=== PATIENT | male | born 1965 | race Caucasian/White ===

== ENCOUNTER → 2019-09-10 | Outpatient (CLI) | payer BC ==
[~2019-09-10] MED LIST: CA C1TAB78 PO; FLAX100011 PO; HYDR-4226 PO; Levofloxacin PO; MELA1TAB11 PO; MULT-974 PO; NAPR-1071 PO; OMEG1CAP51 PO; VITA1CAP21 PO; [UNRECOGNIZED DRUG - OTHER] PO
--- NOTE | 2019-09-10 12:43 | Diagnostic Imaging Report ---
INDICATION: Pain. FINDINGS: There is a moderate severity of osteoarthritic changes to the left hip joint. In this single AP oriented radiograph, no fracture is appreciable. There is some bony hypertrophy at the femoral head-neck junction which could result in impingement in the appropriate scenario. IMPRESSION: Degenerative changes and bony hypertrophy raising the question of impingement. No acute finding revealed at single AP radiograph of the left hip. Dictated by: Dictated on workstation # [id number]
== END ==
LOC: RAD 09:58
PROVIDERS: ATTEND Family Medicine
DX: M16.12 Unilateral primary osteoarthritis, left hip (principal); M89.352 Hypertrophy of bone, left femur
CPT/HCPCS: 73501

== ENCOUNTER → 2020-01-01 | Outpatient (REF) ==
--- NOTE | 2020-01-01 12:22 | Diagnostic Imaging Report ---
EXAMINATION: Left hip at 11:19 a.m. INDICATION: Hip pain. AP and lateral views were obtained. FINDINGS: The prior exam of 09/10/2019 noted moderately severe osteoarthritic changes involving the left hip joint. Those findings are again evident and do not appear to have progressed. There is no fracture or acute bony abnormality evident. There is no sign of avascular necrosis. The soft tissues are unremarkable. IMPRESSION: 1. The degenerative changes involving the hip joint noted on the prior exam appear stable. No new abnormality has developed. 2. If clinical concern regarding an underlying abnormality persists, then MRI would be recommended for further evaluation. Dictated by: Dictated on workstation # [id number]
== END | disposition home or self-care (01) ==
LOC: OCC 11:00
PROVIDERS: ATTEND Nurse Practitioner Family
CPT/HCPCS: 73502

== ENCOUNTER → 2020-03-24 | Outpatient (REF) | payer BC ==
--- NOTE | 2020-03-24 13:47 | Diagnostic Imaging Report ---
EXAMINATION: Magnetic resonance imaging of the pelvis and left hip without contrast DATE: March 24, 2020. COMPARISON: Left hip radiograph January 01, 2020. INDICATION: 54-year-old male, left hip pain. TECHNIQUE: Magnetic Resonance Imaging sequences were performed of the pelvis and left hip without contrast. TENDONS AND MUSCLES: The gluteus ki muscles and their origins and insertions are intact bilaterally. The tendons and muscles of the greater trochanter - gluteus minimus, piriformis and gluteus medius - are intact bilaterally. Both common hamstring attachments on the ischial tuberosities are intact and the extensor muscles of the thigh are intact. The visualized portions of the flexors and adductor muscles of the thigh and their attachments on the pelvis and hips are intact. Both iliopsoas and iliacus muscles are intact. The bilateral iliopsoas tendons are intact. HIPS AND SACROILIAC JOINTS: There is severe joint space loss of the left hip with [id number] articulation. There is associated osteophyte formation. There is prominent edema-like signal in the left acetabulum as well as the left femoral head and neck. There is no clearly identified fracture line or pathognomonic double line sign of osteonecrosis. There is abnormal protuberance at the left femoral head neck junction. The right hip joint space appears mildly narrowed. There is no right hip joint effusion. There is no identified paralabral cyst. There is partial ankylosis across the sacroiliac joints, particularly at their upper aspects. LUMBAR SPINE: There is transitional lumbosacral anatomy. If spinal intervention is to be performed in the future, recommend careful correlation with levels. BONE: There is marrow edema in the left acetabulum, left femoral head, and left femoral neck as described above. There is no clearly identified pathognomonic double line sign of osteonecrosis or a visible fracture line. BURSAE AND SOFT TISSUES: There is diffuse urinary bladder wall thickening which may relate to cystitis and/or chronic outlet obstruction. There is fluid in the right inguinal canal which is nonspecific. IMPRESSION: 1. Severe arthritis of the left hip with small left hip joint effusion. Very prominent edema-like signal in the left acetabulum, left femoral head, left femoral neck could relate to the arthritis. There is no identified fracture line or pathognomonic double line sign of osteonecrosis. Particularly given the somewhat prominent edema in the left proximal femur, early findings of avascular necrosis, and a cold subchondral fracture, or transient osteoporosis are also in the differential diagnosis. 2. Abnormal protuberance at the left femoral head neck junction. It is uncertain if this is a primary abnormal osseous morphology or secondary finding relating to the arthritis. 3. Intact muscles and tendons. 4. Partial ankylosis across the sacroiliac joints at the upper aspects. Seronegative spondyloarthropathies are in the differential diagnosis. Dictated by: Dictated on workstation # [id number]
== END ==
LOC: RAD 12:20 → EDSTATUS 12:30
PROVIDERS: ATTEND Nurse Practitioner Family
DX: M16.12 Unilateral primary osteoarthritis, left hip (principal); M25.451 Effusion, right hip; M24.651 Ankylosis, right hip
CPT/HCPCS: 73721

== ENCOUNTER → 2021-05-26 | Outpatient (CLI) | payer BC ==
[~2021-05-26] VITALS: Ht 170.2 cm; Wt 90.8 kg
[~2021-05-26] MED LIST changes: +ZOLP5TAB PO
== END | disposition home or self-care (01) ==
LOC: PREOP 05:31
PROVIDERS: ATTEND Surgery
DX: Z01.818 Encounter for other preprocedural examination (principal)

== ENCOUNTER 2021-06-02 12:12 | Day surgery (SDC) | payer BC ==
--- NOTE | 2021-06-01 14:15 | HISTORY AND PHYSICAL ---
DATE OF SERVICE: PROCEDURE DATE: 06/02/2021. ATTENDING PRIMARY CARE PHYSICIAN: Dr. Valentino Coe. HISTORY OF PRESENT ILLNESS: The patient is a 55-year-old male, who was referred over to us for a screening colonoscopy. He reports her last colonoscopy was some around 5 to 10 years ago. He denies any diarrhea or constipation as well as no blood in the stool. He also denies any abdominal pain. He does report that he does have a family history of colon cancer with his grandfather having colon cancer. PAST MEDICAL HISTORY: Degenerative joint disease, orbital fracture of the left. PAST SURGICAL HISTORY: None. ALLERGIES: No known drug allergies. MEDICATIONS: Ambien, naproxen and Flexeril. SOCIAL HISTORY: Negative for tobacco smoke. Positive for chewing tobacco. Social for alcohol. FAMILY HISTORY: Mother, type 2 diabetes, myocardial infarction. Grandfather, colon cancer. VITAL SIGNS: Blood pressure is 173/98. Current weight is 202 pounds, height 5 feet 7 inches with a body mass index of 31.6. REVIEW OF SYSTEMS: Well-nourished male in no acute distress. He is not experiencing any shortness of breath or difficulty breathing. No chest pain, palpitations or diaphoresis. No nausea, vomiting or abdominal pain. No diarrhea or constipation. No red blood per rectum. No dark tarry stools. No fever or chills. No recent inadvertent weight loss. All other review of systems negative. PHYSICAL EXAMINATION: CHEST: Clear. Good breath sounds bilaterally. HEART: Regular, no murmurs. EXTREMITIES: No lower extremity edema. Negative Homans sign. HEENT: No scleral icterus. NECK: No cervical lymphadenopathy. ABDOMEN: Soft, nontender, nondistended. SKIN: Warm, dry and pink. NEUROLOGIC: He is awake, alert and oriented x3. ASSESSMENT AND PLAN: A 55-year-old male, who does have a family history of colon cancer with his grandfather having the disease. At this time, we will proceed with scheduling him for a screening colonoscopy. Job ID: [id number] DocumentID: [id number] Dictated Date: 06/01/2021 14:00:14 Database Coordinator Date: 06/01/2021 14:14:57 Dictated By: HANNAH MANDUJANO APRN
[~2021-06-02] VITALS: Ht 170.2 cm; Wt 90.8 kg
[2021-06-02] VITALS (11 sets, daily range): BP systolic 127–150; BP diastolic 83–100
--- NOTE | 2021-06-02 12:16 | Conscious Sedation/ASA ---
Conscious Sedation Pre-Proced Time 12:15 ASA Score 2 For ASA 3 and 4: Consider anesthesia and medical clearance. Also, for patients with a history of failed moderate sedation consider anesthesia. Airway Lungs Heart ASA score ASA 1: a normal healthy patient ASA 2: a patient with a mild systemic disease (mid diabetes, controlled hypertension, obesity ASA 3: a patient with a severe systemic disease that limits activity (angina, COPD, prior Myocardial infarction) ASA 4: a patient with an incapacitating disease that is a constant threat to life (CHF, renal failure) ASA 5: a moribund patient not expected to survive 24 hrs. (ruptured aneurysm) ASA 6: a declared brain- patient whose organs are being harvested. For emergent operations, add the letter E after the classification Mallampati Classification Grade 2 Sedation Plan Analgesia, Amnesia, Plan communicated to team members, Discussed options with patient/fam, Discussed risks with patient/fam The patient is an appropriate candidate to undergo the planned procedure, sedation, and anesthesia. The patient immediately re-assessed prior to indication. SRUTHI PRECIADO MD Jun 02, 2021 12:16
--- NOTE | 2021-06-02 12:17 | Progress Note-Pre Operative ---
Pre-Operative Progress Note H&P Reviewed The H&P was reviewed, patient examined and no changes noted. Date Seen by Provider: Jun 02, 2021 Time Seen by Provider: 12:15 Date H&P Reviewed: Jun 02, 2021 Time H&P Reviewed: 12:15 Pre-Operative Diagnosis: screening SRUTHI Patton MD Jun 02, 2021 12:17
--- NOTE | 2021-06-02 12:18 | Discharge Inst-Surgical ---
D/C Lap Instructions-OZZY Follow Up Activity as tolerated High Fiber Diet 25g or more per day Avoid Alcohol, Caffeine, Spicy Catarina and Acid foods. Drink 64 fluid oz or more of fluids per day. Symptoms to Report: Fever over 101 degree F, Nausea/Vomiting If any problems/questions: Contact your physician or go to Emergency Room SRUTHI PRECIADO MD Jun 02, 2021 12:18
[2021-06-02] MEDS ORDERED: ONDANSETRON 4 MG (ZOFRAN) ORAL DISSOLVE TAB PO PRN (12:30)
[2021-06-02] MEDS ORDERED: ONDANSETRON 4 MG/2 ML (SDV) Z0FRAN IVP PRN (12:30)
[2021-06-02] MEDS ORDERED: NS IV 500 ML 500 ML IV PRN (12:45)
[2021-06-02] MEDS ORDERED: LIDOCAINE JELLY 2% 6 ML SYRINGE MM PRN (12:45)
[2021-06-02] MEDS ORDERED: fentaNYL INJ 100 MCG/2 ML AMP IVP ONE (12:45)
[2021-06-02] MEDS ORDERED: MIDAZOLAM 5 MG/5 ML (VERSED) VIAL IV ONE (12:45)
[2021-06-02] MEDS ORDERED: fentaNYL INJ 100 MCG/2 ML AMP ONE (14:51)
[2021-06-02] MEDS ORDERED: MIDAZOLAM 5 MG/5 ML (VERSED) VIAL ONE (14:52)
--- NOTE | 2021-06-02 15:47 | Progress Note-Post Operative ---
Post-Operative Progess Note Surgeon (s)/Industrial Methods Consultant (s) Surgeon SRUTHI PRECIADO MD Industrial Methods Consultant: none Pre-Operative Diagnosis screening colo Post-Operative Diagnosis mild chronic stage 2 ext and int hemorrhoids, moderate sigmoid diverticulosis. Procedure & Operative Findings Date of Procedure 06/02/21 Procedure Performed/Findings colonoscopy Anesthesia Type cs Estimated Blood Loss Estimated blood loss (mL): minimal Specimens/Packing Specimens Removed none SRUTHI PRECIADO MD Jun 02, 2021 15:47
--- NOTE | 2021-06-03 02:18 | OPERATIVE REPORT ---
DATE OF SERVICE: 06/02/2021 ATTENDING PRIMARY CARE PHYSICIAN: Dr. Valentino Coe. PREOPERATIVE DIAGNOSIS: Screening colonoscopy. POSTOPERATIVE DIAGNOSES: Mild chronic stage II external and internal hemorrhoids, moderate sigmoid diverticulosis. PROCEDURE: Colonoscopy. SURGEON: Sruthi Preciado MD. ANESTHESIA: Conscious sedation. ESTIMATED BLOOD LOSS: Minimal. FINDINGS: Mild chronic stage II external and internal hemorrhoids, moderate sigmoid diverticulosis. DISPOSITION: The patient tolerated the procedure well. INDICATIONS: The patient is a 55-year-old male referred over to us for screening colonoscopy. He states that his last colonoscopy was around 5 to 10 years ago. He does not recall any abnormalities. He does not report any major issues with diarrhea nor constipation as well as no red blood per rectum. He does have a remote family history of colon cancer with his grandfather having the disease; however, he does not have any first-degree relatives. DESCRIPTION OF PROCEDURE: The patient was brought to the endoscopy suite, laid in the left lateral decubitus position. After adequate IV pain and sedative medications and conscious sedation anesthesia, a digital rectal examination was performed. Mild chronic stage II external and internal hemorrhoids identified, which were stage II. Normal sphincter tone was felt and there were no palpable masses. Prostate gland was palpable and appeared normal. The endoscope was then intubated to anus and rectum gently insufflated. The endoscope was then advanced through the valves of Wray of the rectum with no polyps or any neoplasms identified. Through the sigmoid colon, a moderate sigmoid diverticulosis identified. There were no mucosal inflammatory changes to indicate any active diverticulitis. The endoscope was then advanced to the remainder of the descending, transverse and ascending colon to the cecum, which were normal. No polyps or any neoplasms identified. The endoscope was then slowly withdrawn while taking a second look and suctioning of residual air with no additional findings. The patient tolerated the procedure well. We will recommend a high fiber diet with incorporation of a fiber supplement, which should equal or exceed to promote soft stools on a daily basis. If he is asymptomatic, he does not need another colonoscopy for another 10 years. Job ID: [id number] DocumentID: [id number] Dictated Date: 06/02/2021 15:32:19 Case Management Director Date: 06/03/2021 02:17:32 Dictated By: SRUTHI PRECIADO MD
== END 2021-06-02 15:59 | disposition home or self-care (01) ==
LOC: ENDO 12:12
PROVIDERS: ATTEND Surgery
DX: Z12.11 Encounter for screening for malignant neoplasm of colon (principal); K64.1 Second degree hemorrhoids; K57.30 Diverticulosis of large intestine without perforation or abscess without bleeding; Z79.899 Other long term (current) drug therapy

== ENCOUNTER → 2023-02-23 | Outpatient (CLI) | payer BC ==
--- NOTE | 2023-02-23 16:16 | Diagnostic Imaging Report ---
INDICATION: RT HIP PAIN COMPARISON: None. FINDINGS: 2 views of the right hip were obtained and show no fractures, dislocations, or other acute bony abnormalities. Joint spaces are well maintained throughout. The soft tissues appear unremarkable. No unexpected radiopaque foreign bodies are identified. IMPRESSION: Unremarkable radiographic exam of the right hip. Dictated by: Dictated on workstation # [id number]
== END ==
LOC: RAD 13:58
PROVIDERS: ATTEND Family Medicine
DX: M25.551 Pain in right hip (principal)
CPT/HCPCS: 73502